=== PATIENT | female | born 1945 | race American Indian/Alaskan Native ===

== ENCOUNTER 2018-03-03 14:20 | Emergency (ER) | payer MEDICARE ==
[2018-03-03 14:46] VITALS: BP 154/70
[2018-03-03 15:44] LABS: Basophils % (Auto) 0.4 % (0.0-1.8); Eosinophils # (Auto) 0.1 K/mm3 (0.0-0.4); Eosinophils % (Auto) 1.5 % (0.0-4.3); Hemoglobin 13.3 gm/dl (10.1-14.3); Lymphocytes # (Auto) 0.8 K/mm3 (1.2-5.4); Lymphocytes % (Auto) 22.8 % (13.4-35.0); Mean Corpuscular HGB Conc 33 % (30-34); Mean Corpuscular Volume 98 fl (79-97); Monocytes # (Auto) 0.3 K/mm3 (0.0-0.8); Monocytes % (Auto) 8.6 % (0.0-7.3); Platelet Count 139 K/mm3 (140-440)
[2018-03-03 15:55] LABS: INR 1.13 (0.87-1.13); Partial Thromboplastin Time 36.7 Sec. (24.2-36.6)
--- NOTE | 2018-03-03 15:56 | Emergency Department Report ---
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 Patient's present headache is throbbing in nature and is not the worse headache of her life. Patient also complains of abdominal pain that is diffuse in nature. Patient has chest pain, shortness of breath, nausea or vomiting. -: Sudden Location: head, abdomen Radiation: non-radiation Severity scale (0 -10): 6 Quality: sharp Consistency: constant Improves with: none Worsens with: none Associated Symptoms: denies other symptoms Treatments Prior to Arrival: none - Related Data Home Medications Medication Instructions Recorded Confirmed Last Taken Carvedilol 25 mg PO BID 01/01/15 01/01/15 12/31/14 Dabigatran [Pradaxa] 150 mg PO BID 01/01/15 01/01/15 4 Days Ago ~12/28/14 Digoxin 250 mcg PO QDAY 01/01/15 01/01/15 12/31/14 Furosemide [Lasix TAB] 20 mg PO QDAY 01/01/15 01/01/15 12/31/14 Ramipril 1.25 mg PO QDAY 01/01/15 01/01/15 12/31/14 Simvastatin 80 mg PO HS 01/01/15 01/01/15 12/31/14 carBAMazepine XR 100 mg PO BID 01/01/15 01/01/15 12/31/14 Previous Rx's Medication Instructions Recorded Last Taken Type Promethazine [Phenergan TAB] 25 mg PO Q8HR PRN #12 tab 03/03/18 Unknown Rx levoFLOXacin [Levaquin] 750 mg PO QDAY #5 tablet 03/03/18 Unknown Rx Allergies Allergy/AdvReac Type Severity Reaction Status Date / Time No Known Allergies Allergy Verified 01/01/15 06:37 ED Review of Systems ROS: Stated complaint: POSS STEMI Other details as noted in HPI Comment: All other systems reviewed and negative Constitutional: denies: chills, fever Eyes: denies: eye pain, eye discharge, vision change ENT: denies: ear pain, throat pain Respiratory: denies: cough, shortness of breath, wheezing Cardiovascular: denies: chest pain, palpitations Endocrine: no symptoms reported Gastrointestinal: abdominal pain. denies: nausea, diarrhea Genitourinary: denies: urgency, dysuria, discharge Musculoskeletal: denies: back pain, joint swelling, arthralgia Skin: denies: rash, lesions Neurological: headache. denies: weakness, paresthesias Psychiatric: denies: anxiety, depression Hematological/Lymphatic: denies: easy bleeding, easy bruising ED Past Medical Hx - Past Medical History Previous Medical History?: Yes Hx Hypertension: Yes (1995) Hx Heart Attack/AMI: No Hx Congestive Heart Failure: No Hx Diabetes: No Hx GERD: Yes Hx Arthritis: Yes Hx Asthma: Yes - Surgical History Hx Coronary Stent: No - Social History Smoking Status: Unknown if ever smoked Substance Use Type: None - Medications Home Medications: Home Medications Medication Instructions Recorded Confirmed Last Taken Type Carvedilol 25 mg PO BID 01/01/15 01/01/15 12/31/14 History Dabigatran [Pradaxa] 150 mg PO BID 01/01/15 01/01/15 4 Days Ago History ~12/28/14 Digoxin 250 mcg PO QDAY 01/01/15 01/01/15 12/31/14 History Furosemide [Lasix TAB] 20 mg PO QDAY 01/01/15 01/01/15 12/31/14 History Ramipril 1.25 mg PO QDAY 01/01/15 01/01/15 12/31/14 History Simvastatin 80 mg PO HS 01/01/15 01/01/15 12/31/14 History carBAMazepine XR 100 mg PO BID 01/01/15 01/01/15 12/31/14 History Promethazine [Phenergan TAB] 25 mg PO Q8HR PRN #12 tab 03/03/18 Unknown Rx levoFLOXacin [Levaquin] 750 mg PO QDAY #5 tablet 03/03/18 Unknown Rx ED Physical Exam - General Limitations: Physical Limitation General appearance: alert, in no apparent distress - Head Head exam: Present: atraumatic, normocephalic - Eye Eye exam: Present: normal appearance, PERRL, EOMI - ENT ENT exam: Present: mucous membranes moist - Neck Neck exam: Present: normal inspection - Respiratory Respiratory exam: Present: normal lung sounds bilaterally. Absent: respiratory distress, wheezes, rales, rhonchi - Cardiovascular Cardiovascular Exam: Present: regular rate, normal rhythm. Absent: systolic murmur, diastolic murmur, rubs, gallop - GI/Abdominal GI/Abdominal exam: Present: soft, normal bowel sounds. Absent: distended, tenderness - Extremities Exam Extremities exam: Present: normal inspection - Back Exam Back exam: Present: normal inspection - Neurological Exam Neurological exam: Present: alert, oriented X3 - Psychiatric Psychiatric exam: Present: normal affect, normal mood - Skin Skin exam: Present: warm, dry, intact, normal color. Absent: rash ED Course Vital Signs 03/03/18 14:37 Temperature 97.5 F L Pulse Rate 64 Respiratory 14 Rate Blood Pressure 154/70 O2 Sat by Pulse 100 Oximetry ED Medical Decision Making - Lab Data Result diagrams: 03/03/18 15:10 03/03/18 15:10 Lab Results 03/03/18 03/03/18 03/03/18 Range/Units 15:10 15:10 15:10 WBC 3.6 L (4.5-11.0) K/mm3 RBC 4.10 (3.65-5.03) M/mm3 Hgb 13.3 (10.1-14.3) gm/dl Hct 40.0 (30.3-42.9) % MCV 98 H (79-97) fl MCH 32 (28-32) pg MCHC 33 (30-34) % RDW 14.0 (13.2-15.2) % Plt Count 139 L (140-440) K/mm3 Lymph % (Auto) 22.8 (13.4-35.0) % Ness % (Auto) 8.6 H (0.0-7.3) % Eos % (Auto) 1.5 (0.0-4.3) % Baso % (Auto) 0.4 (0.0-1.8) % Lymph # 0.8 L (1.2-5.4) K/mm3 Ness # 0.3 (0.0-0.8) K/mm3 Eos # 0.1 (0.0-0.4) K/mm3 Baso # 0.0 (0.0-0.1) K/mm3 Seg Neutrophils % 66.7 (40.0-70.0) % Seg Neutrophils # 2.4 (1.8-7.7) K/mm3 PT 14.9 (12.2-14.9) Sec. INR 1.13 (0.87-1.13) APTT 36.7 H (24.2-36.6) Sec. Sodium 143 (137-145) mmol/L Potassium 3.7 (3.6-5.0) mmol/L Chloride 103.5 (98-107) mmol/L Carbon Dioxide 32 H (22-30) mmol/L Anion Gap 11 mmol/L BUN 9 (7-17) mg/dL Creatinine 0.7 (0.7-1.2) mg/dL Estimated GFR > 60 ml/min BUN/Creatinine Ratio 13 % Glucose 109 H (65-100) mg/dL Calcium 9.0 (8.4-10.2) mg/dL Total Bilirubin < 0.20 (0.1-1.2) mg/dL AST 19 (5-40) units/L ALT 18 (7-56) units/L Alkaline Phosphatase 85 (35-129) units/L Troponin T < 0.010 (0.00-0.029) ng/mL Total Protein 6.4 (6.3-8.2) g/dL Albumin 3.9 (3.9-5) g/dL Albumin/Globulin Ratio 1.6 % Lipase 30 (13-60) units/L - EKG Data -: EKG Interpreted by Pa EKG shows normal: sinus rhythm Rate: normal - EKG Data Interpretation: [facility] - Radiology Data Radiology results: report reviewed [facility] [address] [place] [address] Cat Scan Report Signed Patient: KRISHNA JC MR#: [id number] : 1945 Acct:[id number] Age/Sex: 72 / F ADM Date: 03/03/18 Loc: ED Attending Dr: Ordering Physician: NEERAJ CONWAY MD Date of Service: 03/03/18 Procedure(s): CT abdomen pelvis wo con Accession Number(s): [id number] cc: NEERAJ CONWAY MD FINAL REPORT EXAM: CT ABDOMEN PELVIS WO CON HISTORY: abdominal pain TECHNIQUE: Axial helical imaging through the abdomen and pelvis with sagittal and coronal reformatted images obtained. Comparison: None FINDINGS: The there is pulmonary consolidation in the dependent portion the right lower lobe without definite evidence of volume loss concerning for pulmonary infiltrate. The heart is enlarged. There are several areas of decreased density within the liver that likely represent cysts. The spleen, pancreas and gallbladder are unremarkable. There is an approximately 1.5 centimeter fatty density mass in the left adrenal gland. Probable adenoma. There is an approximately 4.4 centimeter left renal cyst. The kidneys are otherwise unremarkable. There is moderate to marked distention of the stomach. The remainder of the bowel is normal caliber. The appendix is normal caliber. There is a moderate amount of stool in the ascending, transverse and descending colon. There is no evidence of pneumoperitoneum or free fluid. The abdominal aorta is normal caliber. There is no definite evidence of pathologic intra-abdominal adenopathy on this study without contrast. The urinary bladder is moderately distended and unremarkable. The uterus and adnexal are unremarkable. There are bilateral femoral hernias that contain fat. The bony structures are notable for spondylitic change lumbar spine with grade 1 anterolisthesis L3 on L4 IMPRESSION: 1. Pulmonary consolidation right lower lobe concerning for pulmonary infil trate/pneumonia. 2. Moderate to marked distention of the stomach out of proportion to the degree of distention of the remainder of the bowel. Gastric paresis or gastric outlet obstruction needs to be considered. Correlation with amount of food ingestion immediately prior to examination is recommended. 3. Liver and left renal cysts. 4. Probable adenoma left adrenal gland. 5. Bilateral femoral hernias that contain fat. 6. Spondylitic change lumbar spine with anterolisthesis L3 on L4 5. Cardiomegaly. Transcribed By: ED Dictated By: LORENA MELENDREZ MD Electronically Authenticated By: LORENA MELENDREZ MD Signed Date/Time: 03/03/181654 DD/ 56 TD/TT: 03/03/181656 [facility] [address] [place] [address] Cat Scan Report Signed Patient: KRISHNA JC MR#: [id number] : 1945 Acct:[id number] Age/Sex: 72 / F ADM Date: 03/03/18 Loc: ED Attending Dr: Ordering Physician: NEERAJ CONWAY MD Date of Service: 03/03/18 Procedure(s): CT head/brain wo con Accession Number(s): [id number] cc: NEERAJ CONWAY MD FINAL REPORT EXAM: CT HEAD/BRAIN WO CON HISTORY: headache TECHNIQUE: 2.5 millimeter axial images from the skullbase to the vertex. Comparison: None FINDINGS: There a chronic cortical infarct in the left frontal, temporal and parietal lobes and left insular cortex in the left middle cerebral artery distribution. There is no evidence of an acute intracranial process, intracranial hemorrhage or mass effect. Ventricular size is concordant with the degree of atrophy. The visualized portions of the orbits, paranasal and mastoid sinuses are notable for small polyps or retention cysts in the maxillary sinuses bilaterally. The bony structures are unremarkable in appearance. IMPRESSION: 1. No evidence of an acute intracranial process, intracranial hemorrhage or mass effect. 2. 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 If there is a clinical suspicion of acute cerebral ischemia, MRI brain may be helpful. Transcribed By: ED Dictated By: LORENA MELENDREZ MD Electronically Authenticated By: LORENA MELENDREZ MD Signed Date/Time: 03/03/181643 DD/ 45 TD/TT: 03/03/181645 - Medical Decision Making Contacted cardiology and EKG was done at their facility returns of ST elevation UT. Patient was sent to the ED for evaluation of her abdominal pain. Discussed results with patient and her family Critical care attestation.: If time is entered above; I have spent that time in minutes in the direct care of this critically ill patient, excluding procedure time. ED Disposition Clinical Impression: Abdominal pain, Headache, Pneumonia Disposition: TO HOME OR SELFCARE Is pt being admited?: No Does the pt Need Aspirin: No Condition: Stable Instructions: Pneumonia (ED), Abdominal Pain (ED), Acute Headache (ED) Additional Instructions: return if worse Prescriptions: levoFLOXacin [Levaquin] 750 mg PO QDAY #5 tablet Promethazine [Phenergan TAB] 25 mg PO Q8HR PRN #12 tab PRN Reason: Nausea Referrals: [facility] [Provider Group] - 3-5 Days [facility] [Provider Group] - 3-5 Days Time of Disposition: 17:36
--- NOTE | 2018-03-03 16:07 | XRay Report ---
FINAL REPORT EXAM: XR CHEST 1V AP HISTORY: Chest Pain TECHNIQUE: Frontal portable view of the chest Comparison: None FINDINGS: The there is prominence of the interstitial markings in both lungs without evidence of focal infiltra te, pneumothorax or pleural fluid collection. There is an approximately 3.4 centimeter rounded density superimposed on the cardiac silhouette on th e right. This is of unclear etiology. There is prominence of the pulmonary venous vasculature suggestive of pulmonary venous congestion. The cardiac silhouette is enlarged. The thoracic aorta is moderately tortuous. The bony structures are notable for degenerative change of the shoulder joints bilaterally. Visualiza tion detail of the thoracic spine is limited. IMPRESSION: 1. Approximately 3.4 centimeter rounded density superimposed on the cardiac silhouette on the right t hat is of unclear etiology. CT chest would be helpful for further evaluation. 2. Enlarged cardiac silhouette with evidence of pulmonary venous congestion. 3. Prominence of the interstitial markings, acute versus chronic. Comparison with previous imaging st udies would be helpful. 4. Moderate tortuosity thoracic aorta. 5. Degenerative change shoulder joints bilaterally.
--- NOTE | 2018-03-03 16:44 | Cat Scan Report ---
FINAL REPORT EXAM: CT HEAD/BRAIN WO CON HISTORY: headache TECHNIQUE: 2.5 millimeter axial images from the skullbase to the vertex. Comparison: None FINDINGS: There a chronic cortical infarct in the left frontal, temporal and parietal lobes and left insular co rtex in the left middle cerebral artery distribution. There is no evidence of an acute intracranial process, intracranial hemorrhage or mass effect. Ventricular size is concordant with the degree of atrophy. The visualized portions of the orbits, paranasal and mastoid sinuses are notable for small polyps or retention cysts in the maxillary sinuses bilaterally. The bony structures are unremarkable in appearance. IMPRESSION: 1. No evidence of an acute intracranial process, intracranial hemorrhage or mass effect. 2. 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 If there is a clinical suspicion of acute cerebral ischemia, MRI brain may be helpful.
--- NOTE | 2018-03-03 16:55 | Cat Scan Report ---
FINAL REPORT EXAM: CT ABDOMEN PELVIS WO CON HISTORY: abdominal pain TECHNIQUE: Axial helical imaging through the abdomen and pelvis with sagittal and coronal reformatte d images obtained. Comparison: None FINDINGS: The there is pulmonary consolidation in the dependent portion the right lower lobe without definite e vidence of volume loss concerning for pulmonary infiltrate. The heart is enlarged. There are several areas of decreased density within the liver that likely represent cysts. The spleen, pancreas and gallbladder are unremarkable. There is an approximately 1.5 centimeter fatty density mass in the left adrenal gland. Probable adeno ma. There is an approximately 4.4 centimeter left renal cyst. The kidneys are otherwise unremarkable. There is moderate to marked distention of the stomach. The remainder of the bowel is normal caliber. The appendix is normal caliber. There is a moderate amount of stool in the ascending, transverse and descending colon. There is no evidence of pneumoperitoneum or free fluid. The abdominal aorta is normal caliber. There is no definite evidence of pathologic intra-abdominal adenopathy on this study without contrast . The urinary bladder is moderately distended and unremarkable. The uterus and adnexal are unremarkable. There are bilateral femoral hernias that contain fat. The bony structures are notable for spondylitic change lumbar spine with grade 1 anterolisthesis L3 o n L4 IMPRESSION: 1. Pulmonary consolidation right lower lobe concerning for pulmonary infiltrate/pneumonia. 2. Moderate to marked distention of the stomach out of proportion to the degree of distention of the remainder of the bowel. Gastric paresis or gastric outlet obstruction needs to be considered. Correla tion with amount of food ingestion immediately prior to examination is recommended. 3. Liver and left renal cysts. 4. Probable adenoma left adrenal gland. 5. Bilateral femoral hernias that contain fat. 6. Spondylitic change lumbar spine with anterolisthesis L3 on L4 5. Cardiomegaly.
[2018-03-03 17:03] LABS: Alanine Aminotransferase 18 units/L (7-56); Albumin 3.9 g/dL (3.9-5); BUN/Creatinine Ratio 13; Blood Urea Nitrogen 9 mg/dL (7-17); Hemolysis Index 9
== END 2018-03-03 19:13 | disposition home or self-care (01) ==
LOC: ED 14:20
DX: J18.9 Pneumonia, unspecified organism (principal); R10.84 Generalized abdominal pain; R51 Headache; I10 Essential (primary) hypertension; K21.9 Gastro-esophageal reflux disease without esophagitis; M19.90 Unspecified osteoarthritis, unspecified site; J45.909 Unspecified asthma, uncomplicated
CPT/HCPCS: 36415; 70450; 71045; 74176; 80053; 83690; 84484; 85025; 85610; 85730; 93005; 93010

== ENCOUNTER 2020-09-22 15:15 | Emergency (ER) | payer MEDICARE ==
--- NOTE | 2020-09-22 15:32 | Emergency Department Report ---
ED CPR HPI - General Stated Complaint: CARDIAC ARREST Time Seen by Provider: 09/22/20 15:23 Source: family, EMS, old records reviewed Mode of arrival: Stretcher Limitations: Other (Cardiac arrest) - History of Present Illness Initial Comments: Chief complaint: Cardiac arrest HPI: This is a 75-year-old female history of dementia and benign brain tumor with history of who presents in cardiac arrest. Family member found patient unresponsive. Noticed cessation in breathing. Upon arrival EMS saw agonal respirations 2 breaths/min. PEA without pulse. PEA rapidly deteriorated to asystole bleed. Patient received 4 doses of epinephrine, and 1 dose of sodium bicarbonate. Patient was intubated with endotracheal tube. Patient rapidly declined over the last 2 months. She stopped walking and eating. She has been bedbound the last 2 months. MD Complaint: found unresponsive, stopped breathing Place: home Bystander CPR Performed: No Initial Findings in the Field: unresponsive, agonal, PEA, other rhythm (PEA developed into asystole) ROSC in the Field: No Associated Injuries: No Treatments Prior to Arrival: intubation, epinephrine mgs # (4 doses of epinephrine), sodium bicarbonate (1 dose of sodium bicarbonate) - Related Data Home Medications Medication Instructions Recorded Confirmed Last Taken Carvedilol 25 mg PO BID 01/01/15 01/01/15 12/31/14 Dabigatran [Pradaxa] 150 mg PO BID 01/01/15 01/01/15 4 Days Ago ~12/28/14 Digoxin 250 mcg PO QDAY 01/01/15 01/01/15 12/31/14 Furosemide [Lasix TAB] 20 mg PO QDAY 01/01/15 01/01/15 12/31/14 Ramipril 1.25 mg PO QDAY 01/01/15 01/01/15 12/31/14 Simvastatin 80 mg PO HS 01/01/15 01/01/15 12/31/14 carBAMazepine XR 100 mg PO BID 01/01/15 01/01/15 12/31/14 Previous Rx's Medication Instructions Recorded Last Taken Type Promethazine [Phenergan TAB] 25 mg PO Q8HR PRN #12 tab 03/03/18 Unknown Rx levoFLOXacin [Levaquin] 750 mg PO QDAY #5 tablet 03/03/18 Unknown Rx Allergies Allergy/AdvReac Type Severity Reaction Status Date / Time No Known Allergies Allergy Verified 01/01/15 06:37 ED Review of Systems ROS: Stated complaint: CARDIAC ARREST Other details as noted in HPI Comment: Unobtainable due to pts medical conditions (Cardiac arrest lifeless) ED Past Medical Hx - Past Medical History Hx Hypertension: Yes (1995) Hx Heart Attack/AMI: No Hx Congestive Heart Failure: No Hx Diabetes: No Hx GERD: Yes Hx Arthritis: Yes Hx Asthma: Yes Additional medical history: Brain tumor - Surgical History Hx Coronary Stent: No - Social History Smoking Status: Unknown if ever smoked Substance Use Type: None - Medications Home Medications: Home Medications Medication Instructions Recorded Confirmed Last Taken Type Carvedilol 25 mg PO BID 01/01/15 01/01/15 12/31/14 History Dabigatran [Pradaxa] 150 mg PO BID 01/01/15 01/01/15 4 Days Ago History ~12/28/14 Digoxin 250 mcg PO QDAY 01/01/15 01/01/15 12/31/14 History Furosemide [Lasix TAB] 20 mg PO QDAY 01/01/15 01/01/15 12/31/14 History Ramipril 1.25 mg PO QDAY 01/01/15 01/01/15 12/31/14 History Simvastatin 80 mg PO HS 01/01/15 01/01/15 12/31/14 History carBAMazepine XR 100 mg PO BID 01/01/15 01/01/15 12/31/14 History Promethazine [Phenergan TAB] 25 mg PO Q8HR PRN #12 tab 03/03/18 Unknown Rx levoFLOXacin [Levaquin] 750 mg PO QDAY #5 tablet 03/03/18 Unknown Rx ED Physical Exam - General General appearance: other (Very warm to touch, lifeless, eyes open, no spontaneous movement appears frail cachectic wearing diaper) - Head Head exam: Present: atraumatic, normocephalic - Eye Eye exam: Present: other (Fixed dilated pupils dry cornea no eyelid reflex) - ENT ENT exam: Present: other (Necrotic abrasions both ears) - Neck Neck exam: Present: other (No deformity) - Respiratory Respiratory exam: Present: other (No spontaneous respirations, equal breath sounds with bagging ventilation) - Cardiovascular Cardiovascular Exam: Present: other (No palpable pulse) - GI/Abdominal GI/Abdominal exam: Present: soft. Absent: distended - Extremities Exam Extremities exam: Present: other (Cachectic extremities heel cushion present) - Back Exam Back exam: Present: other (Multiple diagnoses) - Skin Skin exam: Present: other (Hot to touch, ecchymosis diffuse, necrotic sacral decubitus ulcer) ED Medical Decision Making - Medical Decision Making Cardiac arrest, EMS performed ACLS for 20 minutes. Patient arrived in asystole. Further resuscitation deemed futile. Time of 1520 I notified daughter and in person. Critical care attestation.: If time is entered above; I have spent that time in minutes in the direct care of this critically ill patient, excluding procedure time. ED Disposition Clinical Impression: Cardiac arrest Disposition: DC-20 Is pt being admited?: No Does the pt Need Aspirin: No Condition: Stable Time of Disposition: 15:20
== END 2020-09-22 23:58 ==
LOC: ED 15:15
DX: I46.9 Cardiac arrest, cause unspecified (principal); K21.9 Gastro-esophageal reflux disease without esophagitis; M19.90 Unspecified osteoarthritis, unspecified site; J45.909 Unspecified asthma, uncomplicated; Z85.9 Personal history of malignant neoplasm, unspecified
CPT/HCPCS: 92950; 99285